=== PATIENT | male | born 1980 | race Caucasian/White ===

== ENCOUNTER 2024-09-26 21:17 | Emergency (ER) | payer MEDICAID, OTHER ==
[~2024-09-26] VITALS: Ht 193 cm; Wt 175.0 kg
[2024-09-26 21:21] VITALS: BP 184/104; PULSE 89; RESP 16; TEMP 98.1; O2SAT 98
--- NOTE | 2024-09-26 21:49 | Physician Documentation ---
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 There was blood in the toilet. He was wearing gloves, but a piece of glass cut him on the palm of his left hand. He has a small wound there. He did wash it with soap and water. No history of HIV. He has had 2 of his hepatitis vaccinations, and had a normal titer within the last 1 year Tetanus within 5 Years?: Yes Medication Reconciliation Allergies: Uncoded Allergies: PENICILLIN (Allergy, Unknown, 09/26/24) Review of Systems Integumentary: Reports: laceration(s) Physical Exam Vital Signs: Temperature: 98.1, Source: Oral, Heart Rate: 89, Respiratory Rate: 16, BP: 184/104, Pulse Oximetry: 98, Weight: 175.000 Oxygen Flow Rate: 0 Physical Exam This is a pleasant healthy-appearing young man sitting calmly in the chair Heart rate is normal, normal-appearing perfusion to the left hand Left hand: On the palm of the left hand there is a less than 0.5 cm superficial laceration, with no active bleeding. On palpation there is no evidence of foreign object or a glass He is calm and cooperative Progress Results/Orders Results/Orders Orders - FLORENTIN SANDS MD Hep B Core Ab, Igm (09/26/24 22:02) Hep B Core Ab, Tot (09/26/24 22:02) Completed Orders - FLORENTIN SANDS MD Hiv Ab 1&2 Rapid Scn (09/26/24 22:02) Vital Signs 09/26/24 21:21 Temp 98.1 Pulse 89 Resp 16 B/P (MAP) 184/104 Pulse Ox 98 O2 Flow Rate 0 Laboratory Tests Test 09/26/24 22:12 HIV (1&2) Antibody Non-reactive Medical Decision Making Differential Dx:Considerations: Include: Body Fluid Exposure, Infectious disease expos., Laceration, Puncture wound Additional Comment The patient presents with a body fluid/blood exposure. On exam he has a tiny wound on his hand, which seems low risk for transmission of disease. He did clean his wound with soap and water. His tetanus is up-to-date. He has no history of HIV and his hepatitis B titers are reportedly normal in the last year. Blood work for HIV and hepatitis-B was obtained. He was referred to Occupational Health for further workup and treatment. Departure Time of Disposition: 22:39 Disposition: 01 HOME / SELF CARE / HOMELESS Impression: Primary Impression: Exposure to blood or body fluid Condition: Stable Discharge Instructions: Body Fluid Exposure Referrals: NO PRIMARY CARE PROVIDER (PCP) Education Educated: Patient Educated regarding: need for follow up Signature Scribe Signature: na Attestation: FLORENTIN Jackson MD September 26, 2024 21:49
[2024-09-26 23:25] LABS: HIV ANTIBODY 1&2 RAPID NON-REACTIVE (Neg)
== END 2024-09-26 22:47 | disposition home or self-care (01) ==
LOC: ER 21:18
DX: Z77.21 Contact with and (suspected) exposure to potentially hazardous body fluids (principal); W25.XXXA Contact with sharp glass, initial encounter; Y93.89 Activity, other specified; Y92.89 Other specified places as the place of occurrence of the external cause; Y99.8 Other external cause status
CPT/HCPCS: 36415; 86703; 86704; 86705; 99283